=== PATIENT | female | born 1990 | race Caucasian/White ===

== ENCOUNTER 2020-06-01 00:42 | Inpatient (IN) ==
[2020-06-01] MEDS ORDERED: NS 0.9% 1000 ml BAG 1,000 ML IV ONE ×3 (00:52→13:20)
[2020-06-01] MEDS ORDERED: Ondansetron 4 mg VIAL 2 MG/ML 2 ml VIAL IV ONE (01:17)
[2020-06-01] MEDS ORDERED: Ondansetron 4 mg VIAL 2 MG/ML 2 ml VIAL ONE (01:18)
[2020-06-01 01:51] LABS: ABS Neutrophils 5.3 10^3/ul (1.5-7.7); Eosinophil % 0.2 %; Hematocrit 33 % (35-47); Lymphocyte % 23.8 %; Mean Corpuscular HGB Conc 36 g/dL (31-36); Mean Corpuscular Hemoglobin 33 pg (27-31); Mean Corpuscular Volume 92 fL (80-97); Mean Platelet Volume 7.3 fL (7.4-10.4); Platelet Count 265 10^3/uL (150-450); Red Blood Count 3.59 10^6 /uL (3.70-4.87); Red Cell Distribution Width 12 % (10-15); White Blood Count 8.4 10^3/uL (3.5-10.8)
[2020-06-01 02:05] LABS: ALT 55 U/L (7-52); Albumin 3.7 g/dL (3.2-5.2); Albumin/Globulin Ratio 1.1 (1-3); Alkaline Phosphatase 175 U/L (34-104); BUN/Creatinine Ratio 12.9 (8-20); Blood Urea Nitrogen 8 mg/dL (6-24); CO2 Carbon Dioxide 29 mmol/L (22-32); Calcium 7.8 mg/dL (8.6-10.3); Chloride 96 mmol/L (101-111); EGFR African American 135.9 (>60); EGFR Non-African American 112.3 (>60); Globulin 3.5 g/dL (2-4); Glucose 125 mg/dL (70-100); Sodium 140 mmol/L (135-145); Total Protein 7.2 g/dL (6.4-8.9)
[2020-06-01 02:06] LABS: Alcohol, S 545 mg/dL (<10)
[2020-06-01 02:09] LABS: Anion Gap 15 mmol/L (2-11)
[2020-06-01 02:12] LABS: HCG Pregnancy < 0.60 mIU/mL
[2020-06-01] MEDS ORDERED: LORazepam 2 mg VIAL 1 ml IV PUSH ONE (07:49)
[2020-06-01] MEDS ORDERED: Lorazepam PYXIS KEY PRN (07:49)
[2020-06-01] MEDS ORDERED: Lorazepam PYXIS KEY ONE (07:52)
[2020-06-01] MEDS ORDERED: Thiamine 100 MG/ML 2 ml VIAL (200 mg) IM ONE ×2 (07:52→09:17)
[2020-06-01] MEDS ORDERED: Nicotine PATCH 14 MG/24 HR PATCH TRANSDERM ONE (07:57)
[2020-06-01 08:16] LABS: Troponin I 0.01 ng/mL (<0.03)
[2020-06-01] MEDS ORDERED: Multivitamins/Minerals TAB PO SCH (09:00)
[2020-06-01 09:04] LABS: Urine Appearance Turbid; Urine Bilirubin Negative (Negative); Urine Blood 1+ (Negative); Urine Color Yellow; Urine Glucose Negative (Negative); Urine Ketones Negative (Negative); Urine Nitrite Positive (Negative); Urine Protein 1+(30 mg/dL) (Negative); Urine Specific Gravity 1.014 (1.010-1.030); Urine Urobilinogen Negative (Negative)
[2020-06-01 09:10] LABS: Urine Bacteria Absent (Absent); Urine Red Blood Cell 3+(>10/hpf) (Absent); Urine Squamous Epithelial Cell Present (Absent); Urine White Blood Cell 3+(>20/hpf) (Absent)
[2020-06-01 09:27] LABS: Urine Benzodiazepine Screen None Detected (None Detect); Urine Cannabinoids Screen Presumptive Positive (None Detect); Urine Opiates Screen None Detected (None Detect)
[2020-06-01] MEDS: NS 0.9% 1000 ml BAG 1,000 ML IV SCH ×2 (11:37→18:06)
[2020-06-01 13:09] LABS: Magnesium 1.4 mg/dL (1.9-2.7)
[2020-06-01] MEDS ORDERED: Potassium Chlor 20 meq TAB.ER PO ONE (13:23)
[2020-06-01] MEDS ORDERED: KCL 20 MEQ/100 ML IVPREMIX 20 MEQ/100 ML BAG IV ONE (13:23)
[2020-06-01] MEDS ORDERED: Ondansetron 4 mg VIAL 2 MG/ML 2 ml VIAL IV PRN (13:44)
[2020-06-01] MEDS: Magnesium Sulfate 2 gm BAG 2 GM/50 ML BAG IVPB ONE ×2 (14:06→16:21)
[2020-06-01] MEDS ORDERED: Metoprolol Tartrate 5 mg VIAL 5 ml VIAL (1 mg/ml) IV ONE (14:16)
[2020-06-01 15:10] LABS: Hepatitis B Surface Antigen Nonreactive (Nonreactive)
[2020-06-01 15:15] LABS: Hepatitis A Ab IgM Negative (Negative)
[2020-06-01 15:16] LABS: Hepatitis B Core IgM Nonreactive (Nonreactive)
[2020-06-01] MEDS ORDERED: Iohexol 350 (CONTRAST) 500 ML MDV IV ONE (15:25)
[2020-06-01 15:27] LABS: Hepatitis C Antibody Negative (Negative)
[2020-06-01] MEDS: cefTRIAXone 1 gm/50 mL NS BAG 1 GM/50 ML BAG IVPB SCH (16:17)
[2020-06-02] MEDS: NS 0.9% 1000 ml BAG 1,000 ML IV SCH ×2 (04:46→16:20)
[2020-06-02] MEDS: Calcium Carb (TUMS) 500 mg CHEW TAB PO PRN (04:46)
[2020-06-02] MEDS ORDERED: Pantoprazole VIAL 40 MG VIAL IV SCH (06:00)
[2020-06-02 06:15] LABS: ABS Lymphocytes 0.9 10^3/ul (1.0-4.8); ABS Monocytes 0.7 10^3/ul (0-0.8); ABS Neutrophils 4.3 10^3/ul (1.5-7.7); Eosinophil % 0.3 %; Hematocrit 23 % (35-47); Hemoglobin 8.2 g/dL (12.0-16.0); Lymphocyte % 15.6 %; Mean Corpuscular HGB Conc 35 g/dL (31-36); Mean Corpuscular Hemoglobin 32 pg (27-31); Mean Corpuscular Volume 92 fL (80-97); Mean Platelet Volume 7.1 fL (7.4-10.4); Nucleated Red Blood Cells % 0.1; Platelet Count 173 10^3/uL (150-450); Red Blood Count 2.53 10^6 /uL (3.70-4.87); Red Cell Distribution Width 12 % (10-15); White Blood Count 5.9 10^3/uL (3.5-10.8)
[2020-06-02 06:38] LABS: BUN/Creatinine Ratio 11.1 (8-20); Calcium 7.8 mg/dL (8.6-10.3); EGFR African American 159.3 (>60); EGFR Non-African American 131.7 (>60); Potassium 3.1 mmol/L (3.5-5.0)
[2020-06-02] MEDS ORDERED: LORazepam 2 mg VIAL 1 ml IV PUSH SCH (08:00)
[2020-06-02 08:15] LABS: INR 1.08 (0.82-1.09)
[2020-06-02 08:20] LABS: Hematocrit 26 % (35-47); Hemoglobin 8.9 g/dL (12.0-16.0)
[2020-06-02] MEDS: KCL 10 MEQ/50 ML IVPREMIX 10 MEQ/50 ML BAG IV SCH ×3 (08:35→18:48)
[2020-06-02] MEDS: Pantoprazole 80 mg in NS BAG 80 MG/250 ML BAG IV SCH ×2 (11:47→20:11)
[2020-06-02] MEDS ORDERED: fentaNYL 100 mcg/2 ml 50 MCG/ML VIAL ONE (15:30)
[2020-06-02] MEDS ORDERED: Propofol 10 MG/ML 20 ML BTL ONE (15:30)
[2020-06-02] MEDS ORDERED: Midazolam 5 mg/5 ml VIAL 1 mg/ml 5 ml VIAL (5 mg) ONE (15:30)
[2020-06-02] MEDS: cefTRIAXone 1 gm/50 mL NS BAG 1 GM/50 ML BAG IVPB SCH (16:20)
[2020-06-02 17:13] LABS: Hematocrit 25 % (35-47); Hemoglobin 8.3 g/dL (12.0-16.0)
[2020-06-02] MEDS: Multivitamins/Minerals TAB PO SCH (17:15)
[2020-06-02 17:29] LABS: BUN/Creatinine Ratio 13.2 (8-20); Calcium 7.6 mg/dL (8.6-10.3); EGFR African American 162.8 (>60); EGFR Non-African American 134.6 (>60); Potassium 3.4 mmol/L (3.5-5.0)
[2020-06-03] MEDS: NS 0.9% 1000 ml BAG 1,000 ML IV SCH ×2 (04:38→16:29)
[2020-06-03] MEDS: Pantoprazole 80 mg in NS BAG 80 MG/250 ML BAG IV SCH ×2 (04:43→17:00)
[2020-06-03 05:20] LABS: ABS Eosinophils 0.1 10^3/ul (0-0.6); ABS Lymphocytes 1.1 10^3/ul (1.0-4.8); ABS Monocytes 0.5 10^3/ul (0-0.8); Eosinophil % 1.9 %; Hematocrit 22 % (35-47); Hemoglobin 7.8 g/dL (12.0-16.0); Lymphocyte % 23.8 %; Mean Corpuscular HGB Conc 35 g/dL (31-36); Mean Corpuscular Hemoglobin 33 pg (27-31); Mean Corpuscular Volume 93 fL (80-97); Mean Platelet Volume 7.5 fL (7.4-10.4); Nucleated Red Blood Cells % 0.2; Platelet Count 194 10^3/uL (150-450); Red Blood Count 2.38 10^6 /uL (3.70-4.87); Red Cell Distribution Width 12 % (10-15); White Blood Count 4.7 10^3/uL (3.5-10.8)
[2020-06-03 05:36] LABS: Albumin 2.9 g/dL (3.2-5.2); Albumin/Globulin Ratio 1.2 (1-3); BUN/Creatinine Ratio 8.9 (8-20); Calcium 7.8 mg/dL (8.6-10.3); EGFR African American 152.8 (>60); EGFR Non-African American 126.3 (>60); Globulin 2.5 g/dL (2-4); Potassium 3.2 mmol/L (3.5-5.0); Total Bilirubin 0.2 mg/dL (0.2-1.0); Total Protein 5.4 g/dL (6.4-8.9)
[2020-06-03 06:42] LABS: Magnesium 1.8 mg/dL (1.9-2.7)
[2020-06-03] MEDS: KCL 10 MEQ/50 ML IVPREMIX 10 MEQ/50 ML BAG IV SCH ×4 (07:16→12:08)
[2020-06-03] MEDS: Multivitamins/Minerals TAB PO SCH (08:43)
[2020-06-03] MEDS: cefTRIAXone 1 gm/50 mL NS BAG 1 GM/50 ML BAG IVPB SCH (13:50)
[2020-06-03] MEDS: Calcium Carb (TUMS) 500 mg CHEW TAB PO PRN (21:06)
[2020-06-04] MEDS: Pantoprazole 80 mg in NS BAG 80 MG/250 ML BAG IV SCH (02:11)
[2020-06-04] MEDS: NS 0.9% 1000 ml BAG 1,000 ML IV SCH ×2 (02:12→11:30)
[2020-06-04 04:48] LABS: ABS Basophils 0.1 10^3/ul (0-0.2); ABS Eosinophils 0.1 10^3/ul (0-0.6); ABS Lymphocytes 1.6 10^3/ul (1.0-4.8); ABS Monocytes 0.6 10^3/ul (0-0.8); ABS Neutrophils 3.2 10^3/ul (1.5-7.7); Eosinophil % 1.3 %; Hematocrit 24 % (35-47); Hemoglobin 8.1 g/dL (12.0-16.0); Lymphocyte % 28.6 %; Mean Corpuscular HGB Conc 34 g/dL (31-36); Mean Corpuscular Hemoglobin 32 pg (27-31); Mean Corpuscular Volume 95 fL (80-97); Mean Platelet Volume 7.3 fL (7.4-10.4); Nucleated Red Blood Cells % 0.1; Platelet Count 260 10^3/uL (150-450); Red Blood Count 2.51 10^6 /uL (3.70-4.87); Red Cell Distribution Width 12 % (10-15); White Blood Count 5.5 10^3/uL (3.5-10.8)
[2020-06-04 05:04] LABS: Albumin 3.1 g/dL (3.2-5.2); Albumin/Globulin Ratio 1.3 (1-3); Calcium 8.1 mg/dL (8.6-10.3); EGFR African American 174.1 (>60); EGFR Non-African American 143.9 (>60); Globulin 2.3 g/dL (2-4); Magnesium 1.7 mg/dL (1.9-2.7); Potassium 3.2 mmol/L (3.5-5.0); Total Bilirubin 0.2 mg/dL (0.2-1.0); Total Protein 5.4 g/dL (6.4-8.9)
[2020-06-04 05:49] LABS: Total Bilirubin 0.2 mg/dL (0.2-1.0)
[2020-06-04] MEDS: Multivitamins/Minerals TAB PO SCH (09:23)
[2020-06-04] MEDS ORDERED: Potassium Chlor 20 meq TAB.ER PO ONE (11:07)
[2020-06-04] MEDS ORDERED: Magnesium Sulfate IV 3 GM in NS 0.9% 100 ml BAG 100 ML IVPB ONE (11:30)
[2020-06-05] MEDS: NS 0.9% 1000 ml BAG 1,000 ML IV SCH (05:18)
[2020-06-05 05:40] LABS: BUN/Creatinine Ratio 7.9 (8-20); Calcium 8.4 mg/dL (8.6-10.3); EGFR African American 133.4 (>60); EGFR Non-African American 110.2 (>60); Magnesium 2.2 mg/dL (1.9-2.7); Potassium 3.5 mmol/L (3.5-5.0)
[2020-06-05] MEDS: Multivitamins/Minerals TAB PO SCH (07:26)
[2020-06-05 16:25] VITALS: BP 122/64
== END 2020-06-05 16:40 | disposition home or self-care (01) | DRG 896 ==
LOC: ED 00:42 → MED 00:42
PROVIDERS: ADMIT Internal Medicine; ATTEND Pediatrics